=== PATIENT | male | born 1985 | race Caucasian/White ===

== ENCOUNTER → 2016-10-20 | Outpatient (CLI) | payer OTHER ==
[~2016-10-20] MED LIST: AMOX875T PO; CYCL10TA6 PO; EPP3/2 IM; HYDR-3419 PO; IBUP-1451 PO; OXYC-57 PO; PRED-301 PO; PSEUTAB19 PO
[2016-10-20 13:03] LABS: MEAN CELL VOLUME 91.2 fL (80-100); MEAN CORPUSCULAR HEMOGLOBIN 31.5 pg (25-34); MEAN CORPUSCULAR HGB CONC 34.5 g/dl (32-36); MEAN PLATELET VOLUME 11.3 fL (7.4-10.4); PLATELET COUNT 328 K/uL (130-400); RED BLOOD COUNT 5.37 M/uL (4.7-6.1)
[2016-10-20 13:49] LABS: ALT/SGPT 22 U/L (12-78); AMYLASE 38 U/L (25-115); AST/SGOT 5 U/L (15-37); BLOOD UREA NITROGEN 10 mg/dl (7-18); BUN/CREATININE RATIO 10.3 (10-20); CALCIUM 9.4 mg/dl (8.5-10.1); CARBON DIOXIDE 28 mmol/L (21-32); CHLORIDE 105 mmol/L (98-107); CREATININE 0.99 mg/dl (0.60-1.40); GLUCOSE 84 mg/dl (70-99); POTASSIUM 3.5 mmol/L (3.5-5.1); SODIUM 141 mmol/L (136-145)
[2016-10-20 13:51] LABS: ALB/GLOB RATIO 1.2 (0.9-2); ALKALINE PHOSPHATASE 87 U/L (45-117)
== END | disposition home or self-care (01) ==
LOC: C.LABMFLN 11:47
PROVIDERS: ATTEND Family Medicine
DX: R11.0 Nausea (principal)

== ENCOUNTER 2016-10-22 20:11 | Emergency (ER) | payer OTHER ==
[~2016-10-22] VITALS: Ht 170.2 cm; Wt 61.0 kg
[~2016-10-22 20:11] MED LIST changes: -AMOX875T PO; -HYDR-3419 PO; -PSEUTAB19 PO
[2016-10-22 20:21] VITALS: TEMP 36.4; Ht 170.2 cm; Wt 61.0 kg
[2016-10-22] MEDS ORDERED: PROPARACAINE HCL 0.5% OP SOLN 15 ML BTL ONE (20:29)
[2016-10-22] MEDS ORDERED: PSEUTAB19 PO (20:41)
[2016-10-22] MEDS ORDERED: HYDR-3419 PO (20:41)
[2016-10-22] MEDS ORDERED: AMOX875T PO (20:58)
[2016-10-22] MEDS ORDERED: AMOXICIL/CLAVU 875MG HOME PACK PO ONE (21:00)
[2016-10-22] MEDS ORDERED: CIPROFLOXACIN HCL 0.3% OP SOLN 2.5 ML BTL OP ONE (21:00)
[2016-10-22 21:07] VITALS: BP 116/65; PULSE 76; O2SAT 98
--- NOTE | 2016-10-23 01:18 | EMERGENCY ROOM VISIT NOTE ---
History First contact with patient: 20:23 Chief Complaint: EYE PAIN Stated Complaint: HEAVY PRESSURE BEHIND R EYE,SHARP PAIN History of Present Illness The patient is a 30 year old male who presents to the Emergency Room with complaints of slowly worsening right eye pain over the past 3 days. The patient does not have vision changes or blurriness. No injury or trauma. He does not work with metal and does not have a foreign body sensation. He describes the pain as a dull pressure at times, however there will be episodes of sharp pain. The patient does not wear contact lenses. He does have recent URI symptoms for the past 10 days. No fever or chills. Review of Systems More than 10 systems were reviewed and otherwise negative with the exception of history of present illness. Past Medical/Surgical History Medical Problems: (1) Tobacco abuse Surgical Problems: (1) History of dental surgery Family History FH: asthma FATHER FH: hyperlipidemia FATHER Hypertension FATHER Social History Smoking Status: Current Every Day Smoker Alcohol Use: occasionally Drug Use: marijuana, other Marital Status: in relationship Housing Status: lives with significant other Occupation Status: employed Current/Historical Medications Scheduled Amoxicillin & Pot Clavulanate (Augmentin 875-125 mg), 1 TAB PO BID Scheduled PRN Epinephrine (Epipen), 0.3 MG IM UD PRN for ALLERGIC REACTION Hydrocodon/Acetaminophen 5MG/300MG (Vicodin (5MG/300MG)), 1 TAB PO Q8 PRN for Pain Pseudoephedrine-Ibuprofen (Advil Cold & Sinus), 1 TAB PO UD PRN for Cold/Sinus Symptoms Allergies Coded Allergies: Bee Venom (Verified Allergy, Unknown, Swelling, 05/23/16) Physical Exam Vital Signs Date Time Temp Pulse Resp B/P Pulse Ox O2 Delivery O2 Flow Rate FiO2 10/22/16 21:07 76 18 116/65 98 10/22/16 20:21 36.4 100 18 87/61 98 Room Air Right Eye Acuity: 20/15 Left Eye Acuity: 20/15 pt does not wear glasses Pain Rating (0-10): 4.0 Physical Exam VITALS: Vitals are noted on the nurse's note and reviewed by myself. Vital signs stable. GENERAL: Well-developed, well-nourished, white male, who is in no acute distress and resting comfortably. Patient is cooperative with the examination. HEAD: Normocephalic atraumatic. Positive right frontal and right maxillary tenderness on percussion. EARS: External ear normal. External auditory canals clear, tympanic membranes pearly rose without erythema or effusion bilaterally. EYES: Pupils equal round and reactive to light and accommodation. Conjunctivae without injection, sclerae without icterus. Extraocular movements intact. Acuity is 20/15 bilateral. Tonometry shows normal pressures. No foreign body noted on slit lamp exam. Mild central uptake Flourescein stain most compatible with superficial abrasions. NOSE: Patent, turbinates without inflammation or discharge. MOUTH: Mucous membranes moist. Tonsils are not enlarged. Pharynx without erythema, blood, or exudate. Uvula midline. Airway patent. NECK: Supple without nuchal rigidity. No lymphadenopathy. No thyromegaly. Cervical spine is nontender. HEART: Regular rate and rhythm without murmurs gallops or rubs. LUNGS: Clear to auscultation bilaterally without wheezes, rales or rhonchi. No retractions or accessory muscle use. Medical Decision & Procedures ED Course Physical exam and history were performed. Nursing notes and EMR were reviewed. Patient appears to have right eye pain for the past 3 days. His intraocular pressures are normal. Slit-lamp exam does not show a foreign body, but does reveal some very superficial abrasions over the anterior cornea. This may be from the patient rubbing his eye. Additionally he does have some tenderness on percussion of the maxillary and frontal sinuses on the right. I suspect that most of his symptoms may be an early sinusitis. He will be provided a course of Augmentin. Because he does have some findings on slit lamp exam he will also be given a short course of Ciloxan. The patient needs to follow with his primary care physician in the next few days for recheck. He is otherwise invited back to the ER with any new, worsening, or concerning symptoms. The chart was completed utilizing [employer] Speech Voice Recognition Software. Grammatical errors, random word insertions, pronoun errors, and incomplete sentences are an occasional consequence of this system due to software limitations, ambient noise, and hardware issues. Any formal questions or concerns about the content, text, or information contained within the body of this dictation should be directly addressed to the provider for clarification. . Medical Decision Differential diagnosis includes, but is not limited to: Laceration, abrasion, foreign body, ulceration, glaucoma, sinusitis, viral infection, and others Impression Primary Impression: Acute right eye pain Additional Impression: Sinusitis Departure Information Dispostion Home / Self-Care Condition GOOD Prescriptions Amoxicillin & Pot Clavulanate (Augmentin 875-125 mg) 1 Tab Tab 1 TAB PO BID for 9 Days, #18 TAB Prov: Steve Solares PA-C 10/22/16 Referrals No Doctor, Assigned (PCP) Forms HOME CARE DOCUMENTATION FORM, IMPORTANT VISIT INFORMATION Patient Instructions My [facility] Additional Instructions You were seen and evaluated today on an emergency basis only. This is not a substitute for, or an effort to provide, complete comprehensive medical care. It is not possible to recognize and treat all injuries or illnesses in a single emergency department visit. For this reason it is recommended that you followup with your primary care physician next week for ongoing care and evaluation. Amoxicillin Clavulanate (Augmentin) 875mg: Take one pill twice daily for 10 tota ; days for your infection. All antibiotics can cause diarrhea. If this occurs and you feel worse or it does not resolve in 1-2 days follow up with your doctor or return to the Emergency Department as this could be signs of serious underlying problems. Any medication can cause an allergic reaction, stop the pills immediately and return to the ER for rash, hives, breathing difficulties, or swelling. Use Ciloxan Eye Drops: Instill 1-2 drops into the conjunctival sac every 2 hours while awake for 2 days and 1-2 drops every 4 hours while awake for the next 5 days You are welcome to return to the emergency department anytime with new, worsening, or concerning symptoms. Problem Qualifiers
== END 2016-10-22 21:05 | disposition home or self-care (01) ==
LOC: C.EDB 20:13 → C.EDD 21:05
DX: H57.11 Ocular pain, right eye (principal); J32.9 Chronic sinusitis, unspecified; F17.200 Nicotine dependence, unspecified, uncomplicated; Z82.5 Family history of asthma and other chronic lower respiratory diseases; Z82.49 Family history of ischemic heart disease and other diseases of the circulatory system; F12.90 Cannabis use, unspecified, uncomplicated

== ENCOUNTER → 2016-11-17 | Outpatient (CLI) | payer OTHER ==
[~2016-11-17] MED LIST changes: -CYCL10TA6 PO; +HYDR-3419 PO; -IBUP-1451 PO; -OXYC-57 PO; -PRED-301 PO; +PSEUTAB19 PO
[2016-11-17 13:19] LABS: BASO % 0.2 %; BASO ABS # 0.01 K/uL (0-0.2); COMPLETE YES; EOS % 0.2 %; HEMATOCRIT 50.7 % (42-52); IG% 0.2 %; LYMPH % 23.7 %; LYMPH ABS # 1.51 K/uL (1.2-3.4); MEAN CELL VOLUME 90.1 fL (80-100); MEAN CORPUSCULAR HEMOGLOBIN 31.6 pg (25-34); MEAN CORPUSCULAR HGB CONC 35.1 g/dl (32-36); MEAN PLATELET VOLUME 11.1 fL (7.4-10.4); MONO % 4.4 %; NEUT % 71.3 %; PLATELET COUNT 255 K/uL (130-400); RED BLOOD COUNT 5.63 M/uL (4.7-6.1); WHITE BLOOD COUNT 6.36 K/uL (4.8-10.8)
[2016-11-17 13:34] LABS: ALT/SGPT 19 U/L (12-78); BLOOD UREA NITROGEN 13 mg/dl (7-18); BUN/CREATININE RATIO 13.9 (10-20); CALCIUM 9.6 mg/dl (8.5-10.1); CARBON DIOXIDE 26 mmol/L (21-32); CHLORIDE 106 mmol/L (98-107); CHOLESTEROL 181 mg/dl (0-200); CREATININE 0.93 mg/dl (0.60-1.40); GLUCOSE 84 mg/dl (70-99); POTASSIUM 3.9 mmol/L (3.5-5.1); SODIUM 142 mmol/L (136-145); TRIGLYCERIDES 75 mg/dl (0-150); VERY LOW DENSITY LIPOPROT CALC 15 mg/dl
[2016-11-17 13:44] LABS: ALB/GLOB RATIO 1.3 (0.9-2); ALKALINE PHOSPHATASE 92 U/L (45-117); AST/SGOT 6 U/L (15-37); CHOLESTEROL/HDL RATIO 4.2; HDL CHOLESTEROL 43 mg/dl; LDL CHOLESTEROL CALCULATED 123 mg/dl; THYROID STIMULATING HORMONE 0.482 uIu/ml (0.300-4.500)
== END | disposition home or self-care (01) ==
LOC: C.LABMFLN 08:44
PROVIDERS: ATTEND Family Medicine
DX: Z79.899 Other long term (current) drug therapy (principal); G06.1 Intraspinal abscess and granuloma; F31.30 Bipolar disorder, current episode depressed, mild or moderate severity, unspecified; R63.4 Abnormal weight loss; R11.0 Nausea

== ENCOUNTER → 2017-12-29 | Outpatient (CLI) | payer OTHER ==
[2017-12-29 19:21] LABS: HEP C IGG 13 YRS+OLDER_RFLX NEG (NEG)
[2017-12-31 06:23] LABS: HEPATITIS A IGM TC 51813E NON-REACTIVE (NON-REACTIVE); HEPATITIS B CORE IGM TC51854R NON-REACTIVE (NON-REACTIVE)
== END | disposition home or self-care (01) ==
LOC: C.LABMFLN 14:49
PROVIDERS: ATTEND Family Medicine
DX: Z72.51 High risk heterosexual behavior (principal)